=== PATIENT | female | born 1975 | race Caucasian/White ===

== ENCOUNTER → 2019-12-19 | Outpatient (CLI) | payer SELFPAY ==
[~2019-12-19] MED LIST: CATHETER FLUSH 10 ML SYR IV PRN; HOLD METFORMIN - RECEIVED CONTRAST 20 ML VIAL IV SCH; IOHEXOL 350 MG/ML 100 ML (OMNIPAQUE 350) VIAL IV ONE; NS 100 ML (IVPB) BAG IV ONE
--- NOTE | 2019-12-19 18:21 | Diagnostic Imaging Report ---
EXAMINATION: CT Chest, Abdomen and Pelvis with intravenous contrast. TECHNIQUE: Multiple contiguous axial images were obtained through the chest, abdomen and pelvis after the uneventful administration of intravenous contrast. All CT scans use one or more of the following dose optimizing techniques: automated exposure control, MA and/or KvP adjustment based on a patient size and exam type, or iterative reconstruction. HISTORY: Chronic abdominal pain. COMPARISON: None available. FINDINGS: There is no edema or pneumonia. No pleural effusion. No pneumothorax. No suspicious nodules. There is no axillary or supraclavicular lymphadenopathy. There is no mediastinal lymphadenopathy. Heart size is normal. There are no coronary artery calcifications. No pericardial effusion. Aorta is normal in caliber. The liver is normal without focal lesion. There is no biliary ductal dilation. Gallbladder is surgically absent. Pancreas is normal. Spleen is normal. Adrenal glands are normal. The kidneys are normal. There is no hydronephrosis. Urinary bladder is normal. Visualized bowel is normal in caliber without obstruction or inflammation. There is diverticulosis without diverticulitis. No free fluid or air. No abdominal or pelvic lymphadenopathy. Aorta is normal in caliber without aneurysm. There are no suspicious osseous lesions. IMPRESSION: 1. No acute abnormality in the chest, abdomen or pelvis. Dictated on workstation # [id number]
== END ==
LOC: RAD 15:45
PROVIDERS: ATTEND Nurse Practitioner Family
DX: R10.9 Unspecified abdominal pain (principal)
CPT/HCPCS: 71260; 74177

== ENCOUNTER → 2020-02-28 | Outpatient (CLI) | payer SELFPAY ==
--- NOTE | 2020-02-28 17:04 | Diagnostic Imaging Report ---
PROCEDURE: CT head without contrast. TECHNIQUE: Multiple contiguous axial images were obtained through the brain without the use of intravenous contrast. Auto Exposure Controls were utilized during the CT exam to meet ALARA standards for radiation dose reduction. INDICATION: Head injury with dizziness, headache and visual disturbance. CT HEAD: CT images of the head were obtained. FINDINGS: Ventricles and sulci are within normal limits for size. There is no intracranial hemorrhage identified. There is no abnormal mass effect or shift of midline structures. IMPRESSION: Unremarkable CT of the head. Dictated by: Dictated on workstation # [id number]
== END ==
LOC: RAD 16:17
PROVIDERS: ATTEND Nurse Practitioner Family
DX: S09.90XA Unspecified injury of head, initial encounter (principal); X58.XXXA Exposure to other specified factors, initial encounter
CPT/HCPCS: 70450

== ENCOUNTER 2022-02-07 14:38 | Emergency (ER) | payer SELFPAY ==
--- NOTE | 2022-02-07 14:55 | ED GI ---
General Chief Complaint: Abdominal/GI Problems Stated Complaint: LOWER LT ABD PAIN | LOWER BACK/KIDNEY PAIN Nursing Triage Note: PT STATES SHE HAS HAD LOWER LEFT ABD PAIN FOR A FEW MONTHS, WORSENING TODAY. STATES SHE ALSO HAS LEFT FLANK PAIN/ HX OF KIDNEY STONES. STATES SHE HAS HX OF CANCER IN VARIOUS PLACES(APPY, CHOLEY, HYST DUE TO CA) IN HER ABD AND HAS LOST 200LBS SINCE APRIL. Source of Information: Patient Exam Limitations: No Limitations History of Present Illness Date Seen by Provider: Feb 07, 2022 Time Seen by Provider: 14:50 Initial Comments Patient is a 46-year-old female who presents to the emergency department for evaluation of left-sided abdominal pain that has been present for approximately 9 months. She states it has been more acutely severe the last few days. She states she has a history of abdominal cancer and states she has lost approximately 100-200 pounds since April. She states she also has nausea/vomiting/diarrhea intermittently. She denies any blood in the vomit or stool. States she has a decreased appetite but is able to eat and drink without any worsening of the pain. She was seen at [facility] where it was recommended she have a CT of her abdomen pelvis. She states she never followed up on getting the scan due to insurance issues. She states she has been taking dicyclomine for the abdominal pain that until recently had seemed to be helping. No recent fever. Allergies and Home Medications Allergies Coded Allergies: No Allergy Information Available (Unverified , 12/19/19) Patient Home Medication List Home Medication List Reviewed: Yes Hyoscyamine Sulfate (Levsin-Sl) 0.125 Mg Tab.subl, 0.125 MG SL TID PRN for CRAMPS Prescribed by: Elba Silva on 02/07/221625 Ondansetron (Ondansetron Odt) 4 Mg Tab.rapdis, 4 MG SL Q4H PRN for NAUSEA/VOMITING Prescribed by: Elba Silva on 02/07/22 162 Review of Systems Review of Systems Constitutional: no symptoms reported EENTM: No Symptoms Reported Respiratory: No Symptoms Reported Cardiovascular: No Symptoms Reported Gastrointestinal: See HPI, Abdominal Pain, Diarrhea, Nausea, Vomiting Genitourinary: No Symptoms Reported Musculoskeletal: no symptoms reported Skin: no symptoms reported Psychiatric/Neurological: No Symptoms Reported Endocrine: No Symptoms Reported Hematologic/Lymphatic: No Symptoms Reported Past Ybdcdhp-Pirjpw-Rymozm Hx Patient Social History Tobacco Use?: Yes Tobacco type used: Cigarettes Smoking Status: Current Everyday Smoker Substance use?: No Alcohol Use?: No Physical Exam Vital Signs Vital Signs - First Documented 02/07/22 14:45 Pulse 75 Resp 18 B/P (MAP) 131/88 (102) Pulse Ox 100 O2 Delivery Room Air Capillary Refill : Height/Weight/BMI Height: '" Weight: lbs. oz. kg; BMI Method: General Appearance: WD/WN, no apparent distress HEENT: PERRL/EOMI, normal ENT inspection, TMs normal, pharynx normal Neck: non-tender, full range of motion, supple, normal inspection Respiratory: chest non-tender, lungs clear, normal breath sounds, no respiratory distress, no accessory muscle use Cardiovascular: regular rate, rhythm Gastrointestinal: normal bowel sounds, soft, tenderness Extremities: normal range of motion Neurologic/Psychiatric: no motor/sensory deficits, alert, normal mood/affect, oriented x 3 Skin: normal color, warm/dry Progress/Results/Core Measures Results/Orders Lab Results Laboratory Tests Test 02/07/22 14:45 02/07/22 15:09 Range/Units White Blood Count 11.4 H 4.3-11.0 10^3/uL Red Blood Count 4.79 3.80-5.11 10^6/uL Hemoglobin 15.4 11.5-16.0 g/dL Hematocrit 44 35-52 % Mean Corpuscular Volume 91 80-99 fL Mean Corpuscular Hemoglobin 32 25-34 pg Mean Corpuscular Hemoglobin Concent 35 32-36 g/dL Red Cell Distribution Width 12.4 10.0-14.5 % Platelet Count 259 130-400 10^3/uL Mean Platelet Volume 11.2 9.0-12.2 fL Immature Granulocyte % (Auto) 0 % Neutrophils (%) (Auto) 74 42-75 % Lymphocytes (%) (Auto) 18 12-44 % Monocytes (%) (Auto) 6 0-12 % Eosinophils (%) (Auto) 1 0-10 % Basophils (%) (Auto) 1 0-10 % Neutrophils # (Auto) 8.5 H 1.8-7.8 10^3/uL Lymphocytes # (Auto) 2.1 1.0-4.0 10^3/uL Monocytes # (Auto) 0.7 0.0-1.0 10^3/uL Eosinophils # (Auto) 0.1 0.0-0.3 10^3/uL Basophils # (Auto) 0.1 0.0-0.1 10^3/uL Immature Granulocyte # (Auto) 0.0 0.0-0.1 10^3/uL Sodium Level 137 135-145 MMOL/L Potassium Level 3.6 3.6-5.0 MMOL/L Chloride Level 101 98-107 MMOL/L Carbon Dioxide Level 23 21-32 MMOL/L Anion Gap 13 5-14 MMOL/L Blood Urea Nitrogen 7 7-18 MG/DL Creatinine 0.75 0.60-1.30 MG/DL Estimat Glomerular Filtration Rate 98 BUN/Creatinine Ratio 9 Glucose Level 90 70-105 MG/DL Calcium Level 9.6 8.5-10.1 MG/DL Corrected Calcium 9.2 8.5-10.1 MG/DL Total Bilirubin 0.2 0.1-1.0 MG/DL Aspartate Amino Transf (AST/SGOT) 12 5-34 U/L Alanine Aminotransferase (ALT/SGPT) 8 0-55 U/L Alkaline Phosphatase 68 40-136 U/L Total Protein 7.1 6.4-8.2 GM/DL Albumin 4.5 3.2-4.5 GM/DL Urine Color YELLOW Urine Clarity CLEAR Urine pH 5.5 5-9 Urine Specific [place] <=1.005 1.016-1.022 Urine Protein NEGATIVE NEGATIVE Urine Glucose (UA) NEGATIVE NEGATIVE Urine Ketones NEGATIVE NEGATIVE Urine Nitrite NEGATIVE NEGATIVE Urine Bilirubin NEGATIVE NEGATIVE Urine Urobilinogen 0.2 < = 1.0 MG/DL Urine Leukocyte Esterase NEGATIVE NEGATIVE Urine RBC (Auto) NEGATIVE NEGATIVE Urine RBC NONE /HPF Urine WBC NONE /HPF Urine Crystals NONE /LPF Urine Bacteria NEGATIVE /HPF Urine Casts NONE /LPF Urine Mucus NEGATIVE /LPF Urine Culture Indicated NO My Orders Orders - ELBA SILVA SLOT EDITOR Cbc With Automated Diff (02/07/22 14:53) Comprehensive Metabolic Panel (02/07/22 14:53) Ua Culture If Indicated (02/07/22 14:53) Iv/Invasive Line Insertion .IV INSERT (02/07/22 14:53) Ct Abdomen/Pelvis W (02/07/22 14:53) Iohexol Injection (Omnipaque 350 Mg/Ml 1 (02/07/22 15:45) Ns (Ivpb) (Sodium Chloride 0.9% Ivpb Bag (02/07/22 15:45) Ondansetron Injection (Zofran Injectio (02/07/22 16:15) Medications Given in ED Current Medications Medications Dose Ordered Sig/Joy Route Start Time Stop Time Status Last Admin Dose Admin Iohexol 100 ml ONCE ONCE IV 02/07/22 15:45 02/07/22 15:46 DC 02/07/22 15:45 78 ML Ondansetron HCl 4 mg ONCE ONCE IVP 02/07/22 16:15 02/07/22 16:16 DC 02/07/22 16:07 4 MG Sodium Chloride 100 ml ONCE ONCE IV 02/07/22 15:45 02/07/22 15:46 DC 02/07/22 15:45 80 ML Vital Signs/I&O 02/07/22 02/07/22 14:45 16:39 Pulse 75 68 Resp 18 18 B/P (MAP) 131/88 (102) 140/85 Pulse Ox 100 99 O2 Delivery Room Air Room Air Blood Pressure Mean: 102 Progress Progress Note : Progress Note Patient is nontoxic and well-hydrated on exam. Vital signs are reassuring. Left lower quadrant abdominal pain noted on palpation. No abdominal distention or rigidity appreciated. Laboratory evaluation is largely unremarkable. Urinalysis also unremarkable. CT of the abdomen pelvis reveals no acute abnormality. Will give patient a short prescription for Levsin to see if this helps the pain. I told her to not take this and the Bentyl at the same time. Patient was also given a prescription for Zofran for control of the nausea. Discussed importance of close follow-up with PCP. Also stated the patient may need a colonoscopy for further evaluation of her chronic diarrhea. I gave her information for local general surgeons who would be able to perform this for her. Return precautions for urgent symptomology discussed. Patient verbalized understanding. Departure Impression Primary Impression: Abdominal pain, chronic, left lower quadrant Disposition: 01 HOME, SELF-CARE Condition: Stable Departure-Patient Inst. Decision time for Depature: 16:20 Referrals: [facility] (PCP/Family) Primary Care Physician Patient Instructions: Abdominal Pain, Adult ED Scripts Hyoscyamine Sulfate (Levsin-Sl) 0.125 Mg Tab.subl 0.125 MG SL TID PRN for CRAMPS for 7 Days, #21 TAB 0 Refills Prov: ELBA SILVA APRN 02/07/22 Ondansetron (Ondansetron Odt) 4 Mg Tab.rapdis 4 MG SL Q4H PRN for NAUSEA/VOMITING for 7 Days, #30 TAB 0 Refills Prov: ELBA SILVA APRN 02/07/22 ELBA SILVA APRN Feb 07, 2022 14:55
[2022-02-07 15:05] LABS: BASOPHILS # (AUTO) 0.1 10^3/uL (0.0-0.1); BASOPHILS % (AUTO) 1 % (0-10); EOSINOPHILS # (AUTO) 0.1 10^3/uL (0.0-0.3); EOSINOPHILS % (AUTO) 1 % (0-10); HEMATOCRIT 44 % (35-52); HEMOGLOBIN 15.4 g/dL (11.5-16.0); LYMPHOCYTES # (AUTO) 2.1 10^3/uL (1.0-4.0); LYMPHOCYTES % (AUTO) 18 % (12-44); MEAN CORPUSCULAR HEMOGLOBIN 32 pg (25-34); MEAN CORPUSCULAR HGB CONC 35 g/dL (32-36); MEAN CORPUSCULAR VOLUME 91 fL (80-99); MEAN PLATELET VOLUME 11.2 fL (9.0-12.2); MONOCYTES # (AUTO) 0.7 10^3/uL (0.0-1.0); MONOCYTES % (AUTO) 6 % (0-12); NEUTROPHILS # (AUTO) 8.5 10^3/uL (1.8-7.8); NEUTROPHILS % (AUTO) 74 % (42-75); PLATELET COUNT 259 10^3/uL (130-400); WHITE BLOOD COUNT 11.4 10^3/uL (4.3-11.0)
[2022-02-07 15:16] LABS: BILIRUBIN,URINE NEGATIVE (NEGATIVE); CLARITY,URINE CLEAR; COLOR,URINE YELLOW; GLUCOSE, URINE (UA) NEGATIVE (NEGATIVE); KETONES,URINE NEGATIVE (NEGATIVE); LEUKOCYTE ESTERASE ,URINE NEGATIVE (NEGATIVE); NITRITE,URINE NEGATIVE (NEGATIVE); PH,URINE 5.5 (5-9); PROTEIN,URINE NEGATIVE (NEGATIVE)
[2022-02-07 15:23] LABS: BACTERIA,URINE NEGATIVE /HPF
[2022-02-07 15:26] LABS: ALBUMIN 4.5 GM/DL (3.2-4.5); BILIRUBIN,TOTAL 0.2 MG/DL (0.1-1.0); CALCIUM 9.6 MG/DL (8.5-10.1); CREATININE SERUM 0.75 MG/DL (0.60-1.30); POTASSIUM 3.6 MMOL/L (3.6-5.0); TOTAL PROTEIN 7.1 GM/DL (6.4-8.2)
[2022-02-07] MEDS ORDERED: IOHEXOL 350 MG/ML 100 ML (OMNIPAQUE 350) VIAL IV ONE (15:45)
[2022-02-07] MEDS ORDERED: NS 100 ML (IVPB) BAG IV ONE (15:45)
--- NOTE | 2022-02-07 16:08 | Diagnostic Imaging Report ---
EXAMINATION: CT abdomen and pelvis with intravenous contrast. TECHNIQUE: Multiple contiguous axial images were obtained through the abdomen and pelvis after the uneventful administration of intravenous contrast. All CT scans use one or more of the following dose optimizing techniques: Automated exposure control, MA and/or KvP adjustment based on patient size and exam type or iterative reconstruction. HISTORY: Left-sided abdominal pain and flank pain. COMPARISON: 12/19/2019. FINDINGS: Limited views of the lower thorax are unremarkable. The liver is normal without focal lesion. There is no biliary ductal dilation. Gallbladder is absent. Pancreas is normal. Spleen is normal. Adrenal glands are normal. The kidneys are normal. There is no hydronephrosis. Urinary bladder is normal. Bowel is normal in caliber without obstruction or inflammation. No free fluid or air. No abdominal or pelvic lymphadenopathy. Aorta is normal in caliber without aneurysm. There are no suspicious osseous lesions. IMPRESSION: 1. No acute abnormality in the abdomen or pelvis. Dictated by: Dictated on workstation # [id number]
[2022-02-07] MEDS ORDERED: ONDANSETRON 4 MG/2 ML (SDV) Z0FRAN IVP ONE (16:15)
[2022-02-07] MEDS ORDERED: HYOS0.1283 SL (16:26)
[2022-02-07] MEDS ORDERED: ONDA4TAB11 SL (16:26)
[2022-02-07 16:39] VITALS: BP 140/85
== END 2022-02-07 16:39 | disposition home or self-care (01) ==
LOC: EDUNIT# 14:38 → ER 14:41
DX: R10.32 Left lower quadrant pain (principal); R11.2 Nausea with vomiting, unspecified; F17.210 Nicotine dependence, cigarettes, uncomplicated; Z90.49 Acquired absence of other specified parts of digestive tract; Z28.310 Unvaccinated for COVID-19
CPT/HCPCS: 36415; 74177; 80053; 81000; 85025

== ENCOUNTER 2022-06-25 07:07 | Outpatient (CLI) | payer BC ==
[~2022-06-25] VITALS: Ht 182.9 cm; Wt 73.9 kg
[~2022-06-25 07:07] MED LIST changes: -CATHETER FLUSH 10 ML SYR IV PRN; -HOLD METFORMIN - RECEIVED CONTRAST 20 ML VIAL IV SCH; +HYOS0.1283 SL; -IOHEXOL 350 MG/ML 100 ML (OMNIPAQUE 350) VIAL IV ONE; -NS 100 ML (IVPB) BAG IV ONE; +ONDA4TAB11 SL
[2022-06-25] MEDS ORDERED: HYDR-3923 PO (10:43)
[2022-06-25] MEDS ORDERED: LISI10TA25 PO (10:43)
[2022-06-25] MEDS ORDERED: PANT40TA52 PO (10:43)
[2022-06-25] MEDS ORDERED: ESCI5TAB16 PO (10:43)
[2022-06-25] MEDS ORDERED: CYCL10TA25 PO (10:43)
[2022-06-25] MEDS ORDERED: ACHD5005 PO (10:43)
[2022-06-25] MEDS ORDERED: DICY20TA PO (10:43)
== END 2022-06-25 10:52 | disposition home or self-care (01) ==
LOC: PREOP 07:07
PROVIDERS: ATTEND Surgery
DX: Z01.818 Encounter for other preprocedural examination (principal)

== ENCOUNTER → 2022-07-04 | Outpatient (CLI) | payer BC ==
[~2022-07-04] MED LIST changes: +ACHD5005 PO; +CYCL10TA25 PO; +DICY20TA PO; +ESCI5TAB16 PO; +HYDR-3923 PO; +IOHEXOL 350 MG/ML 100 ML (OMNIPAQUE 350) VIAL IV ONE; +LISI10TA25 PO; +NS 100 ML (IVPB) BAG IV ONE; +PANT40TA52 PO
--- NOTE | 2022-07-04 11:29 | Diagnostic Imaging Report ---
PROCEDURE: CT chest with contrast only. TECHNIQUE: Multiple contiguous axial images were obtained through the chest after administration of intravenous contrast. Auto Exposure Controls were utilized during the CT exam to meet ALARA standards for radiation dose reduction. INDICATION: Abnormal weight loss, history of melanoma, left-sided rib pain. COMPARISON: 12/19/2019 FINDINGS: No significant adenopathy within the chest. No aneurysmal dilatation of the thoracic aorta. The heart is within normal limits in size. No pericardial effusion. No pleural effusion. No significant hiatal hernia. No pneumothorax. The trachea is patent. The lungs are clear of focal pulmonary opacity. Cholecystectomy. Mild intrahepatic biliary dilatation is identified, similar to the prior CT from 2019. Otherwise, the visualized upper abdomen is unremarkable. No acute osseous abnormality. IMPRESSION: No acute abnormality within the chest. Mild intrahepatic biliary dilatation, which is stable. This is favored to simply relate to reservoir effect, status post cholecystectomy. Dictated by: Dictated on workstation # [id number]
== END ==
LOC: RAD 09:30
PROVIDERS: ATTEND Nurse Practitioner
DX: K83.8 Other specified diseases of biliary tract (principal); R63.4 Abnormal weight loss; R07.81 Pleurodynia; Z90.49 Acquired absence of other specified parts of digestive tract
CPT/HCPCS: 71260

== ENCOUNTER 2022-07-08 12:30 | Day surgery (SDC) | payer BC ==
[~2022-07-08] VITALS: Ht 183 cm; Wt 73.9 kg
[~2022-07-08 12:30] MED LIST changes: -IOHEXOL 350 MG/ML 100 ML (OMNIPAQUE 350) VIAL IV ONE; -NS 100 ML (IVPB) BAG IV ONE
[2022-07-08] MEDS ORDERED: LACTATED RINGERS 1,000 ML IV STA (12:32)
[2022-07-08 12:51] VITALS: BP 93/75
--- NOTE | 2022-07-08 13:00 | Progress Note-Pre Operative ---
Pre-Operative Progress Note Date H&P Reviewed: July 08, 2022 Time H&P Reviewed: 12:59 History & Physical: H&P Reviewed, Patient Examed, No changes noted Pre-Operative Diagnosis: abnormal weight loss, occult blood in stool DARA BARTON DO July 08, 2022 13:00
[2022-07-08] MEDS ORDERED: MIDAZOLAM 2 MG/2 ML (VERSED) VIAL ONE (13:46)
[2022-07-08] MEDS ORDERED: PROPOFOL INJECTION 50 ML IV ONE (13:46)
[2022-07-08 14:00] VITALS: BP 90/64
--- NOTE | 2022-07-08 14:04 | Progress Note-Post Operative ---
Post-Operative Progess Note Surgeon (s)/Counter Supervisor (s) Surgeon DARA BARTON DO Counter Supervisor: na Pre-Operative Diagnosis abnormal weight loss, occult blood in stool Post-Operative Diagnosis poor prep Procedure & Operative Findings Date of Procedure 07/08/22 Procedure Performed/Findings flex sig, poor prep Anesthesia Type per FABRICATION SPECIALIST Estimated Blood Loss Estimated blood loss (mL): none Specimens/Packing Specimens Removed none DARA BARTON DO July 08, 2022 14:04
[2022-07-08 14:05] VITALS: BP 92/60
[2022-07-08 14:10] VITALS: BP 99/60
--- NOTE | 2022-07-08 14:23 | Discharge Inst-Simple/Standard ---
Discharge Inst-Standard Patient Instructions/Follow Up Plan of Care/Instructions/FU: come back tomorrow after having proper bowel prep for colonoscopy Activity as Tolerated: Yes Discharge Diet: Other Diet (continue bowel prep diet ) DARA BARTON DO July 08, 2022 14:14
--- NOTE | 2022-07-08 14:27 | Anesthesia-General Post-Op ---
MAC Patient Condition Mental Status/LOC: Same as Preop Cardiovascular: Satisfactory Nausea/Vomiting: Absent Respiratory: Satisfactory Pain: Controlled Complications: Absent Post Op Complications Complications None Follow Up Care/Instructions Patient Instructions None needed. Anesthesiology Discharge Order Discharge Order Patient is doing well, no complaints, stable vital signs, no apparent adverse anesthesia problems. No complications reported per nursing. CARLOS JIMÉNEZ CRNA July 08, 2022 14:26
[2022-07-08 14:35] VITALS: BP 99/60
--- NOTE | 2022-07-08 23:02 | OPERATIVE REPORT ---
DATE OF SERVICE: 07/08/2022 PREOPERATIVE DIAGNOSIS: Abnormal weight loss. Occult positive blood in stools. POSTOPERATIVE DIAGNOSIS: Poor prep. PROCEDURE: Flexible sigmoidoscopy. SURGEON: Dara Lu DO ANESTHESIA: Per TRIAL MANAGEMENT ASSOCIATE. ESTIMATED BLOOD LOSS: None. COMPLICATIONS: None. INDICATIONS: The patient is a 46-year-old female with abnormal weight loss and occult positive stool. She understands risks and benefits of procedure and wished to proceed. Consent was then signed in chart. DESCRIPTION OF PROCEDURE: The patient was taken to endoscopy suite, placed in left lateral recumbent position. Timeout was performed. Digital rectal exam was performed. No palpable polyps, masses or ulcerations. Scope was inserted in the rectum, and encountered a large amount of stool. I was able to irrigate and continued to flush and was able to go into the sigmoid colon, in which continued to encounter a large amount of stool. With the continued amount of fecal material present with poor visualization, therefore, scope was then terminated, so scope was then slowly retracted back. No polyps, masses or ulcerations visualized within the sigmoid or rectum. The scope was slowly retracted back until completely removed. RECOMMENDATIONS: The patient will go ahead and do a colon prep again today and be placed on a schedule for tomorrow morning. If unable to do that, would do a different prep and 2-day prep. Job ID: [id number] DocumentID: [id number] Dictated Date: 07/08/2022 14:26:48 Plastic Welder Date: 07/08/2022 23:00:00 Dictated By: DARA LU DO MTDD
== END 2022-07-08 14:43 | disposition home or self-care (01) ==
LOC: ENDO 12:30
PROVIDERS: ATTEND Surgery
DX: R63.4 Abnormal weight loss (principal); R19.5 Other fecal abnormalities; F17.210 Nicotine dependence, cigarettes, uncomplicated; Z28.310 Unvaccinated for COVID-19

== ENCOUNTER 2022-07-09 07:28 | Day surgery (SDC) | payer BC ==
[~2022-07-09] VITALS: Ht 183 cm; Wt 73.9 kg
--- NOTE | 2022-07-09 07:32 | Progress Note-Pre Operative ---
Pre-Operative Progress Note Date H&P Reviewed: July 09, 2022 Time H&P Reviewed: 07:31 History & Physical: H&P Reviewed, Patient Examed, No changes noted Pre-Operative Diagnosis: abnormal weight loss, occult positive stool DARA BARTON DO July 09, 2022 07:32
[2022-07-09] MEDS ORDERED: PROPOFOL INJECTION 50 ML IV ONE (07:59)
[2022-07-09] MEDS ORDERED: MIDAZOLAM 2 MG/2 ML (VERSED) VIAL ONE (07:59)
[2022-07-09] MEDS ORDERED: LACTATED RINGERS 1,000 ML IV ONE (08:00)
[2022-07-09] MEDS ORDERED: LACTATED RINGERS 1,000 ML IV STA (08:08)
[2022-07-09 08:15] VITALS: BP 99/76
[2022-07-09] MEDS ORDERED: PHENYLEPHRINE 100 MCG/ML 10 ML (ANESTHESIA) SYR ONE (08:24)
[2022-07-09 08:30] VITALS: BP 85/54
--- NOTE | 2022-07-09 08:32 | Anesthesia-General Post-Op ---
MAC Patient Condition Mental Status/LOC: Same as Preop Cardiovascular: Satisfactory Nausea/Vomiting: Absent Respiratory: Satisfactory Pain: Controlled Complications: Absent Post Op Complications Complications None Follow Up Care/Instructions Patient Instructions None needed. Anesthesiology Discharge Order Discharge Order Patient is doing well, no complaints, stable vital signs, no apparent adverse anesthesia problems. No complications reported per nursing. GIOVANNA TIRADO CRNA July 09, 2022 08:31
[2022-07-09 08:35] VITALS: BP 96/66
[2022-07-09 08:40] VITALS: BP 101/69
--- NOTE | 2022-07-09 08:46 | Discharge Inst-Simple/Standard ---
Discharge Inst-Standard Patient Instructions/Follow Up Plan of Care/Instructions/FU: 2 weeks Tabitha Activity as Tolerated: Yes Discharge Diet: Regular Diet DARA BARTON DO July 09, 2022 08:46
[2022-07-09 09:00] VITALS: BP 101/69
[2022-07-09 09:10] VITALS: BP 101/69
--- NOTE | 2022-07-10 00:43 | OPERATIVE REPORT ---
DATE OF SERVICE: 07/09/2022 PREOPERATIVE DIAGNOSES: Abnormal weight loss and occult positive stool. POSTOPERATIVE DIAGNOSIS: Slight mucosal change in the rectum. PROCEDURE: Colonoscopy with cold biopsy of the rectum. SURGEON: Dara Lu DO ANESTHESIA: Per CURB SETTER. ESTIMATED BLOOD LOSS: None. COMPLICATIONS: None. INDICATIONS: The patient is a 46-year-old female with abnormal weight loss and occult positive stool. She understands risks and benefits of procedure and wishes to proceed. Consent was signed in chart. DESCRIPTION OF PROCEDURE: The patient was taken to endoscopy suite, placed in the left lateral recumbent position. Timeout was performed. Digital rectal exam was performed. No palpable polyps, masses or ulcerations. Scope was inserted in the rectum, advanced all the way to the cecum with minimal difficulty. Prep was adequate. Scope was then slowly retracted back. No polyps, masses or ulcerations within the cecum, ascending, transverse, descending and sigmoid colon. In the rectum, just very slight mucosal change, cold biopsy of the rectum was obtained. Scope was retroflexed noting no other pathology. Scope was returned to its normal position, slowly withdrawn until completely removed. The patient tolerated the procedure well without any complications, taken to recovery room in stable condition. RECOMMENDATIONS: The patient will need repeat colonoscopy in 10 years unless family history of colon cancer, which will then be 5 years. Any issues before that, be seen at that time. The patient with abnormal weight loss would consider further radiological imaging for further evaluation for causes of weight loss. The patient will follow up in 2 weeks to go over biopsy and to consider further radiological studies. Job ID: [id number] DocumentID: [id number] Dictated Date: 07/09/2022 22:43:25 Bridge Inspector Date: 07/10/2022 00:43:00 Dictated By: DARA LU DO
== END 2022-07-09 09:10 | disposition home or self-care (01) ==
LOC: ENDO 07:28
PROVIDERS: ATTEND Surgery
DX: K62.89 Other specified diseases of anus and rectum (principal); R63.4 Abnormal weight loss; R19.5 Other fecal abnormalities; F17.210 Nicotine dependence, cigarettes, uncomplicated
CPT/HCPCS: 88305

== ENCOUNTER → 2022-07-31 | Outpatient (CLI) | payer BC ==
[~2022-07-31] MED LIST changes: +CATHETER FLUSH 10 ML SYR IVP PRN
--- NOTE | 2022-08-01 09:10 | Diagnostic Imaging Report ---
INDICATION: Initial staging, abnormal weight loss. Serum blood glucose level at the time of injection is 83 mg/dL. Patient was administered 10.0 mCi F-18 FDG intravenously and PET imaging was performed from the top of the skull to mid thighs. Noncontrast CT was also performed for attenuation correction and anatomic correlation. No prior PET/CT studies are available for comparison. Comparison is made with prior CT abdomen and pelvis from 02/07/2022. There is symmetric activity throughout the brain. The soft tissues of the neck are unremarkable. No definite mediastinal or hilar hypermetabolism is identified. No pulmonary parenchymal hypermetabolism is detected. The abdomen and pelvis demonstrates physiologic activity throughout the gastrointestinal and genitourinary tracts. No suspicious areas of hypermetabolism are identified. IMPRESSION: Unremarkable PET/CT study. No suspicious areas of hypermetabolism are identified. Dictated by: Dictated on workstation # [id number]
== END ==
LOC: RAD 11:39
PROVIDERS: ATTEND Pediatrics
DX: R63.4 Abnormal weight loss (principal)
CPT/HCPCS: 82947